=== PATIENT | female | born 1945 | race Caucasian/White ===

== ENCOUNTER → 2019-06-02 | Outpatient (CLI) | payer MEDICARE ==
[~2019-06-02] MED LIST: AMLO10TA4 PO; AMLO10TA7 PO; ASPI-999 PO; ATOR40TA PO; ATOR40TA70 PO; CLON0.1T PO; CLOP75TA28 PO; CLOP75TA69 PO; HALO5AMP IJ; KRIL1CAP PO; LISI-552 PO; MULT-974 PO; OLAN5TAB25 PO
--- NOTE | 2019-06-02 12:40 | Diagnostic Imaging Report ---
EXAMINATION: Modified barium swallow. INDICATION: Dysphagia. COMPARISON: There are no prior studies available for comparison. This study was performed in the presence of a speech pathologist, Sophy. FINDINGS: The patient was given barium in different substances to swallow. This included honey, nectar, thin, barium in a banana, soft mechanical, and barium on a cookie. She was also given a barium tablet to swallow. The patient was able to swallow all the materials without difficulty. There was no aspiration or penetration. IMPRESSION: The swallowing mechanism is within normal limits. There is no evidence of aspiration or penetration. Dictated by: Dictated on workstation # [id number]
== END ==
LOC: RAD 10:16
PROVIDERS: ATTEND Nurse Practitioner Family
DX: I69.391 Dysphagia following cerebral infarction (principal); R13.12 Dysphagia, oropharyngeal phase
CPT/HCPCS: 74230

== ENCOUNTER → 2019-09-26 | Outpatient (CLI) | payer MEDICARE, OTHER ==
--- NOTE | 2019-09-26 16:14 | Diagnostic Imaging Report ---
PROCEDURE: MR imaging of the brain without contrast. TECHNIQUE: Multiplanar, multisequence MR imaging of the brain was performed without contrast. INDICATION: Left-sided weakness. Patient does have history of stroke. COMPARISON: No prior studies are available for comparison. FINDINGS: The ventricles and sulci appear appropriate for the patient's age. There is mild periventricular white matter foci consistent with chronic microvascular ischemia. No diffusion restriction is identified to suggest acute ischemia. The normal expected flow voids within the carotid siphons are seen. No acute intra-axial or extra-axial hemorrhage is detected. Corpus callosum is unremarkable. The sella and parasellar structures are unremarkable. There is a mucous retention cyst or polyp in the left maxillary sinus. IMPRESSION: Chronic changes. No acute intracranial process is detected. Dictated by: Dictated on workstation # [id number]
== END ==
LOC: RAD 14:21
PROVIDERS: ATTEND Nurse Practitioner Family
DX: G93.89 Other specified disorders of brain (principal); M62.81 Muscle weakness (generalized); Z86.73 Personal history of transient ischemic attack (TIA), and cerebral infarction without residual deficits
CPT/HCPCS: 70551

== ENCOUNTER 2019-10-12 10:01 | Outpatient (RCR) | payer MEDICARE ==
--- NOTE | 2019-10-12 20:40 | Diagnostic Imaging Report ---
PROCEDURE: US carotid duplex, bilateral. TECHNIQUE: Multiple real-time grayscale images were obtained over the carotid arteries in various projections, bilaterally. Additional spectral analysis and color Doppler duplex images were also obtained. INDICATION: STROKE. Parameters based on the consensus panel Garcia-Scale and Doppler ultrasound criteria published March 2003, Radiology, Volume 229. DOPPLER (peak systolic velocity M/S Right Left CCA .82 .81 ICA Proximal .66 NA ICA Mid .74 NA ICA Distal .71 NA FINDINGS: Right side: The right common carotid, internal and external carotids show normal velocities. The ICA/CCA percent ratios are normal. There is normal color Doppler laminar blood flow and the vertebral flow is in the normal antegrade direction. Left side: We were unable to document flow within the left internal carotid. This may be on a technical basis owing to a very high bifurcation; however, its occlusion could not be excluded. If there are new or acute neurological complaints further workup with CT angiography neck and head would be recommended. Also correlation with any outside studies that may document a known left ICA occlusion would be useful. The left vertebral is antegrade. The common carotid is patent. IMPRESSION: 1. Inability to sonographically demonstrate a patent flowing left internal carotid. This could be technical or occluded. Correlate with any outside studies of known occlusion. If there are acute symptoms, or otherwise indicated, greater anatomical detail with CT angiography of the neck suggested. 2. Bilateral vertebral patency and unremarkable right-sided carotid system RATIO .9 NA ECA 1.10 .67 VERT .34 .55 d Dictated by: Dictated on workstation # [id number]
== END 2020-01-10 | disposition home or self-care (01) ==
LOC: CARD 10:01
PROVIDERS: ATTEND Internal Medicine Interventional Cardiology
DX: I35.1 Nonrheumatic aortic (valve) insufficiency (principal); I63.89 Other cerebral infarction; I10 Essential (primary) hypertension; E78.5 Hyperlipidemia, unspecified
CPT/HCPCS: 93306; 93880

== ENCOUNTER 2021-06-08 10:57 | Emergency (ER) | payer MEDICARE ==
[~2021-06-08] VITALS: Ht 152.4 cm; Wt 60.8 kg
[~2021-06-08 10:57] MED LIST changes: +AMLO-251 PO; -AMLO10TA7 PO; +CLN.1T PO; -CLON0.1T PO; -LISI-552 PO; +LISI20TA26 PO; -OLAN5TAB25 PO; +OLN5T PO
--- NOTE | 2021-06-08 11:26 | ED General ---
General Stated Complaint: SOB Source of Information: Patient Exam Limitations: No Limitations History of Present Illness Date Seen by Provider: Jun 08, 2021 Time Seen by Provider: 11:23 Initial Comments To ER with shortness of breath for about the past 2 to 3 days. No fevers. The patient denies feeling short of breath but her sister feels like she is more short of breath than usual. No fevers she has had both Covid vaccines and a booster. 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 She had surgery for entropion of eyelids on 05/23/21. Timing/Duration: 2-3 Days Severity: Moderate Associated Systoms: No Cough; Shortness of Air Allergies and Home Medications Allergies Coded Allergies: No Allergy Information Available (Unverified , 05/02/19) Patient Home Medication List Home Medication List Reviewed: Yes Amlodipine Besylate (Amlodipine Besylate) 10 Mg Tablet, 10 MG PO DAILY Prescribed by: KIM LEOS on 05/17/19951 Aspirin (Aspirin) 81 Mg Tab.chew, 81 MG PO DAILY Prescribed by: KIM LEOS on 05/17/19951 Atorvastatin Calcium (Lipitor) 40 Mg Tablet, 40 MG PO HS Prescribed by: KIM LEOS on 05/17/19951 Azithromycin (Azithromycin) 250 Mg Tablet, 250 MG PO UD Prescribed by: LEANN LEE on 06/08/21 1306 Clonidine HCl (Clonidine HCl) 0.1 Mg Tablet, 0.1 MG PO BID Prescribed by: KIM LEOS on 05/17/19951 Clonidine HCl (Clonidine HCl) 0.1 Mg Tablet, 0.1 MG PO Q4HR PRN for SBP>165 Prescribed by: KIM LEOS on 05/17/19951 Clopidogrel Bisulfate (Clopidogrel) 75 Mg Tablet, 75 MG PO DAILY Prescribed by: KIM LEOS on 05/17/19951 Lisinopril (Lisinopril) 20 Mg Tablet, 20 MG PO DAILY Prescribed by: KIM LEOS on 05/17/19951 Olanzapine (Olanzapine) 5 Mg Tablet, 5 MG PO DAILY@2100 Prescribed by: KIM LEOS on 05/17/19951 Review of Systems Review of Systems Constitutional: see HPI; No chills, No fever EENTM: see HPI Respiratory: see HPI; No cough; short of breath Cardiovascular: no symptoms reported Genitourinary: no symptoms reported Musculoskeletal: no symptoms reported Skin: no symptoms reported Psychiatric/Neurological: No Symptoms Reported Hematologic/Lymphatic: No Symptoms Reported Past Gaefosr-Cykfmx-Jwnuuy Hx Seasonal Allergies Seasonal Allergies: No Past Medical History Surgeries: No Respiratory: No Cardiac: Yes High Cholesterol, Hypertension Neurological: Yes Stroke Genitourinary: No Gastrointestinal: No Chronic Constipation Musculoskeletal: No Arthritis Endocrine: No HEENT: No Cancer: No Psychosocial: No Integumentary: No Blood Disorders: No Physical Exam Vital Signs Vital Signs - First Documented 06/08/21 11:10 Temp 36.7 Pulse 93 Resp 20 B/P (MAP) 160/106 (124) Pulse Ox 97 O2 Delivery Room Air Capillary Refill : Height, Weight, BMI Height: '" Weight: lbs. oz. kg; BMI Method: General Appearance: No Apparent Distress, WD/WN Eyes: Bilateral Eye Normal Inspection, Bilateral Eye PERRL, Bilateral Eye EOMI Neck: Full Range of Motion, Normal Inspection, Other (Lungs are clear without accessory muscle use or abnormal lung sounds. Oxygen 97% on room air.) Respiratory: No Accessory Muscle Use, No Respiratory Distress Cardiovascular: Regular Rate, Rhythm, Normal Peripheral Pulses Gastrointestinal: Normal Bowel Sounds, Non Tender, Soft; No Tenderness Extremity: Normal Capillary Refill, Normal Inspection Neurologic/Psychiatric: Alert, Oriented x3 Skin: Normal Color, Warm/Dry Progress/Results/Core Measures Suspected Sepsis SIRS Temperature: Pulse: Respiratory Rate: Laboratory Tests 06/08/21 11:20: White Blood Count 8.8 Blood Pressure / Mean: Laboratory Tests 06/08/21 11:20: Creatinine 0.86, Platelet Count 235, Total Bilirubin 0.5 Results/Orders Lab Results Laboratory Tests Test 06/08/21 11:20 Range/Units White Blood Count 8.8 4.3-11.0 10^3/uL Red Blood Count 5.43 H 3.80-5.11 10^6/uL Hemoglobin 14.7 11.5-16.0 g/dL Hematocrit 46 35-52 % Mean Corpuscular Volume 84 80-99 fL Mean Corpuscular Hemoglobin 27 25-34 pg Mean Corpuscular Hemoglobin Concent 32 32-36 g/dL Red Cell Distribution Width 14.0 10.0-14.5 % Platelet Count 235 130-400 10^3/uL Mean Platelet Volume 12.0 9.0-12.2 fL Immature Granulocyte % (Auto) 0 % Neutrophils (%) (Auto) 65 42-75 % Lymphocytes (%) (Auto) 28 12-44 % Monocytes (%) (Auto) 5 0-12 % Eosinophils (%) (Auto) 1 0-10 % Basophils (%) (Auto) 0 0-10 % Neutrophils # (Auto) 5.7 1.8-7.8 10^3/uL Lymphocytes # (Auto) 2.5 1.0-4.0 10^3/uL Monocytes # (Auto) 0.5 0.0-1.0 10^3/uL Eosinophils # (Auto) 0.1 0.0-0.3 10^3/uL Basophils # (Auto) 0.0 0.0-0.1 10^3/uL Immature Granulocyte # (Auto) 0.0 0.0-0.1 10^3/uL D-Dimer 1.32 H 0.00-0.49 UG/ML Sodium Level 138 135-145 MMOL/L Potassium Level 3.7 3.6-5.0 MMOL/L Chloride Level 104 98-107 MMOL/L Carbon Dioxide Level 21 21-32 MMOL/L Anion Gap 13 5-14 MMOL/L Blood Urea Nitrogen 20 H 7-18 MG/DL Creatinine 0.86 0.60-1.30 MG/DL Estimat Glomerular Filtration Rate 70 BUN/Creatinine Ratio 23 Glucose Level 142 H 70-105 MG/DL Calcium Level 9.7 8.5-10.1 MG/DL Corrected Calcium 9.8 8.5-10.1 MG/DL Total Bilirubin 0.5 0.1-1.0 MG/DL Aspartate Amino Transf (AST/SGOT) 18 5-34 U/L Alanine Aminotransferase (ALT/SGPT) 22 0-55 U/L Alkaline Phosphatase 138 H 40-136 U/L B-Type Natriuretic Peptide < 10.0 <100.0 PG/ML Total Protein 7.7 6.4-8.2 GM/DL Albumin 3.9 3.2-4.5 GM/DL My Orders Orders - LEANN LEE [employer] [facility]np [place] (06/08/21 11:13) Cbc With Automated Diff (06/08/21 11:13) Comprehensive Metabolic Panel (06/08/21 11:13) Ed Iv/Invasive Line Start (06/08/21 11:13) Ua Culture If Indicated (06/08/21 11:13) Chest 1 View, Ap/Pa Only (06/08/21 11:13) Coronavirus Sars-Cov-2 So 2018 (06/08/21 11:13) Fibrin Degradation Products (06/08/21 11:27) Ct Angio Chest W (06/08/21 11:59) Iohexol Injection (Omnipaque 350 Mg/Ml 1 (06/08/21 12:15) Received Contrast (Hold Metformin- Contr (06/08/21 12:15) Ns (Ivpb) (Sodium Chloride 0.9% Ivpb Bag (06/08/21 12:15) Medications Given in ED Current Medications Medications Dose Ordered Sig/Cesia Route Start Time Stop Time Status Last Admin Dose Admin Iohexol 100 ml ONCE ONCE IV 06/08/21 12:15 06/08/21 12:16 DC 06/08/21 12:37 61 ML Sodium Chloride 100 ml ONCE ONCE IV 06/08/21 12:15 06/08/21 12:16 DC 06/08/21 12:38 67 ML Vital Signs/I&O 06/08/21 11:10 Temp 36.7 Pulse 93 Resp 20 B/P (MAP) 160/106 (124) Pulse Ox 97 O2 Delivery Room Air Capillary Refill : Departure Communication (Admissions) NAME: CONNOR HENDRICKS [facility] REC#: [id number] PT STATUS: REG ER : 1945 PHYSICIAN: LEANN LEE [employer] ADMIT DATE: 06/08/21/ER Draft Date of Exam:06/08/21 CT ANGIO CHEST W PROCEDURE: CT angiography of the chest with contrast. TECHNIQUE: Multiple contiguous axial images were obtained through the chest after uneventful bolus administration of intravenous contrast. 3D reconstructed CTA MIP acquisitions were also performed. Auto Exposure Controls were utilized during the CT exam to meet ALARA standards for radiation dose reduction. Indication: Dyspnea with elevated d-dimer. Comparison: Chest x-ray same day. Discussion: Thyroid gland is enlarged and nodular. Recommend nonemergent thyroid ultrasound to further evaluate. No pulmonary embolus identified. The thoracic aorta is normal in caliber and configuration. Normal heart size. No pleural or pericardial fluid. Cholelithiasis is present. Small cysts noted within the left kidney. The upper abdomen is otherwise unremarkable. No pathologic-appearing adenopathy. There are some infiltrates noted within the left lung base and to a lesser degree the right midlung. This likely represents pneumonia. Some of the infiltrates within the left lung base have a nodular component measuring up to 1.8 cm. Recommend follow-up to resolution after appropriate clinical treatment. No acute osseous abnormality identified. Impression: 1. No pulmonary embolus identified. 2. Opacities are noted within the left lung base and to a lesser degree the right midlung. This likely represents pneumonia. However some of the opacities do have a nodular appearance and recommend follow-up to resolution to exclude a true pulmonary lesion. 3. Cholelithiasis. Dictated on workstation # [id number] Dict: 06/08/21 1241 Trans: 06/08/21 1251 [facility] [id number] Interpreted by: OMAR PEREZ MD Electronically signed by: Impression Primary Impression: Dyspnea on exertion Additional Impression: Pneumonia Disposition: HOME, SELF-CARE Condition: Stable Departure-Patient Inst. Decision time for Depature: 12:51 Referrals: JUSTYNA GONZALES MD (PCP/Family) Primary Care Physician Patient Instructions: Shortness of Breath (Dyspnea) (DC) Add. Discharge Instructions: 1. Return to ER for any concerns follow-up with your doctor next week. Take the antibiotic as directed. He will need to have a repeat chest CT to reevaluate the pneumonia versus nodules on the long after you have completed treatment in a couple of months. Your family doctor will order that. Scripts Azithromycin (Azithromycin) 250 Mg Tablet 250 MG PO UD, #6 TAB TAKE 2 TABLETS ON DAY ONE THEN TAKE 1 TABLET DAILY FOR FOUR MORE DAYS Prov: LEANN LEE [employer]MAN 06/08/21 LEANN LEE [employer]MAN Jun 08, 2021 11:26
[2021-06-08 11:37] LABS: BASOPHILS % (AUTO) 0 % (0-10); EOSINOPHILS # (AUTO) 0.1 10^3/uL (0.0-0.3); EOSINOPHILS % (AUTO) 1 % (0-10); HEMATOCRIT 46 % (35-52); HEMOGLOBIN 14.7 g/dL (11.5-16.0); LYMPHOCYTES # (AUTO) 2.5 10^3/uL (1.0-4.0); LYMPHOCYTES % (AUTO) 28 % (12-44); MEAN CORPUSCULAR HEMOGLOBIN 27 pg (25-34); MEAN CORPUSCULAR HGB CONC 32 g/dL (32-36); MEAN CORPUSCULAR VOLUME 84 fL (80-99); MONOCYTES # (AUTO) 0.5 10^3/uL (0.0-1.0); MONOCYTES % (AUTO) 5 % (0-12); NEUTROPHILS # (AUTO) 5.7 10^3/uL (1.8-7.8); NEUTROPHILS % (AUTO) 65 % (42-75); PLATELET COUNT 235 10^3/uL (130-400); WHITE BLOOD COUNT 8.8 10^3/uL (4.3-11.0)
[2021-06-08 11:58] LABS: ALBUMIN 3.9 GM/DL (3.2-4.5); BILIRUBIN,TOTAL 0.5 MG/DL (0.1-1.0); CALCIUM 9.7 MG/DL (8.5-10.1); CREATININE SERUM 0.86 MG/DL (0.60-1.30); POTASSIUM 3.7 MMOL/L (3.6-5.0); TOTAL PROTEIN 7.7 GM/DL (6.4-8.2)
--- NOTE | 2021-06-08 12:02 | Diagnostic Imaging Report ---
INDICATION: Shortness of breath. COMPARISON: None available. FINDINGS: The lungs appear clear without focal infiltrate or consolidation. There are no findings of an effusion. There is no evidence of a pneumothorax. Heart size and mediastinal contours appear appropriate. Pulmonary vascularity appears within normal limits. There is no acute or suspicious osseous abnormality demonstrated. IMPRESSION: No radiographic evidence of an acute cardiopulmonary process. Dictated by: Dictated on workstation # [id number]
[2021-06-08] MEDS ORDERED: NS 100 ML (IVPB) BAG IV ONE (12:15)
[2021-06-08] MEDS ORDERED: IOHEXOL 350 MG/ML 100 ML (OMNIPAQUE 350) VIAL IV ONE (12:15)
[2021-06-08] MEDS ORDERED: HOLD METFORMIN - RECEIVED CONTRAST 20 ML VIAL IV SCH (12:15)
--- NOTE | 2021-06-08 12:52 | Diagnostic Imaging Report ---
PROCEDURE: CT angiography of the chest with contrast. TECHNIQUE: Multiple contiguous axial images were obtained through the chest after uneventful bolus administration of intravenous contrast. 3D reconstructed CTA MIP acquisitions were also performed. Auto Exposure Controls were utilized during the CT exam to meet ALARA standards for radiation dose reduction. Indication: Dyspnea with elevated d-dimer. Comparison: Chest x-ray same day. Discussion: Thyroid gland is enlarged and nodular. Recommend nonemergent thyroid ultrasound to further evaluate. No pulmonary embolus identified. The thoracic aorta is normal in caliber and configuration. Normal heart size. No pleural or pericardial fluid. Cholelithiasis is present. Small cysts noted within the left kidney. The upper abdomen is otherwise unremarkable. No pathologic-appearing adenopathy. There are some infiltrates noted within the left lung base and to a lesser degree the right midlung. This likely represents pneumonia. Some of the infiltrates within the left lung base have a nodular component measuring up to 1.8 cm. Recommend follow-up to resolution after appropriate clinical treatment. No acute osseous abnormality identified. Impression: 1. No pulmonary embolus identified. 2. Opacities are noted within the left lung base and to a lesser degree the right midlung. This likely represents pneumonia. However some of the opacities do have a nodular appearance and recommend follow-up to resolution to exclude a true pulmonary lesion. 3. Cholelithiasis. Dictated by: Dictated on workstation # [id number]
[2021-06-08] MEDS ORDERED: AZIT250T12 PO (13:06)
[2021-06-08 13:30] VITALS: BP 158/83
== END 2021-06-08 13:30 | disposition home or self-care (01) ==
LOC: EDUNIT# 10:57 → ER 10:58
DX: R06.09 Other forms of dyspnea (principal); J18.9 Pneumonia, unspecified organism; E78.00 Pure hypercholesterolemia, unspecified; I10 Essential (primary) hypertension; Z20.822 Contact with and (suspected) exposure to COVID-19; Z86.73 Personal history of transient ischemic attack (TIA), and cerebral infarction without residual deficits; Z79.82 Long term (current) use of aspirin; Z79.899 Other long term (current) drug therapy
CPT/HCPCS: 36415; 71045; 71275; 80053; 83880; 85025; 85379; 87635

== ENCOUNTER → 2021-06-30 | Outpatient (CLI) | payer MEDICARE ==
[~2021-06-30] MED LIST changes: +AZIT250T12 PO; +CATHETER FLUSH 10 ML SYR IV PRN; +HOLD METFORMIN - RECEIVED CONTRAST 20 ML VIAL IV SCH; +IOHEXOL 350 MG/ML 100 ML (OMNIPAQUE 350) VIAL IV ONE; +NS 100 ML (IVPB) BAG IV ONE
--- NOTE | 2021-06-30 11:19 | Diagnostic Imaging Report ---
PROCEDURE: CT chest with contrast only. TECHNIQUE: Multiple contiguous axial images were obtained through the chest after administration of intravenous contrast. Auto Exposure Controls were utilized during the CT exam to meet ALARA standards for radiation dose reduction. INDICATION: Pneumonia. COMPARISON: 06/08/2021. FINDINGS: Nodular infiltrates in the right lung have resolved completely. The nodular opacities in the left lower lobe have markedly decreased but incompletely resolved. The largest residual focus measures 7 mm today, previously 16 mm. The majority of the lesions are no longer identified. There is no effusion or pneumothorax. There has been no adverse interval development. No pathological-appearing thoracic lymph nodes. No chest wall pathology. IMPRESSION: Complete resolution of right lung and near-complete resolution of left lower lobe nodular infiltrates consistent with near-complete resolution CT findings of pneumonia. No adverse interval development. No empyema, effusion, or abscess. No findings to suggest malignancy. No lymphadenopathy. Dictated by: Dictated on workstation # [id number]
--- NOTE | 2021-06-30 16:58 | Diagnostic Imaging Report ---
PROCEDURE: US Thyroid. TECHNIQUE: Multiple Real-time grayscale images were obtained of the thyroid in various projections. INDICATION: Thyroid nodule. COMPARISON: None available. FINDINGS: Right thyroid lobe: The right thyroid lobe measures 5.6 x 1.8 x 1.9 cm. It demonstrates heterogeneous echogenicity. There are a few nodules within the right thyroid lobe. The most suspicious nodule is solid, hypoechoic, circumscribed, and wider than tall measuring 1.0 x 0.7 x 1.3 cm (TI RADS 4). Isthmus: The thyroid isthmus measures 0.5 cm and heterogeneous without nodule. Left thyroid lobe: The left thyroid lobe measures 5.2 x 1.9 x 1.9 cm and has a background of heterogeneous echogenicity with multiple nodules present. The most suspicious nodule is in the upper pole and is solid, slightly hypoechoic, circumscribed, and wider than tall measuring 0.9 x 0.7 x 1.0 cm (TI RADS 4). IMPRESSION: Bilateral moderately suspicious thyroid nodules for which followup thyroid ultrasound is recommended in 1 year to reassess stability. ACR TI-RADS: TR4 . TI-RADS Recommendations:TR4 - Moderately Suspicious:FNA if >1.5 cm; Follow if > 1.0 cm at 1, 2, 3 and 5 years. Dictated by: Dictated on workstation # [id number]
== END ==
LOC: RAD 09:00
PROVIDERS: ATTEND Family Medicine
DX: E04.9 Nontoxic goiter, unspecified (principal); R91.8 Other nonspecific abnormal finding of lung field; J18.9 Pneumonia, unspecified organism
CPT/HCPCS: 71260; 76536